=== PATIENT | male | born 1930 | race Caucasian/White ===

== ENCOUNTER 2016-08-21 18:14 | Inpatient (IN) | payer MEDICARE, BC, MEDICAID ==
[~2016-08-21] VITALS: Ht 175.3 cm; Wt 75.2 kg
[2016-08-21] MEDS ORDERED: ACETAMINOPHEN 650 MG SUPP RECTAL ONE (18:40)
[2016-08-21] MEDS ORDERED: SODIUM CHLORIDE 0.9% 1,000 ML ONE ×2 (18:48→21:48)
[2016-08-21] MEDS ORDERED: SODIUM CHLORIDE 0.9% 500 ML IV ONE (19:58)
[2016-08-21] MEDS ORDERED: CEFTRIAXONE 1 GM VIAL ONE (20:34)
[2016-08-21] MEDS ORDERED: SODIUM CHLORIDE 0.9% 100 ML IV ONE (20:34)
[2016-08-21] MEDS ORDERED: SODIUM CHLORIDE 0.9% 1,000 ML IV ONE (20:50)
[2016-08-21] MEDS ORDERED: PHARMACY TO DOSE IV SCH ×2 (20:50)
[2016-08-21] MEDS ORDERED: SALINE FLUSH 10 ML FLUSH PRN (20:50)
[2016-08-21] MEDS ORDERED: PHARMACY TO DOSE VANCOMYCIN IV SCH (21:00)
[2016-08-21] MEDS ORDERED: SODIUM CHLORIDE 0.9% 1,000 ML IV SCH (21:05)
[2016-08-21 23:32] VITALS: BP_SYST 72; BP_SYST 74; RESP 16; TEMP 102.7
[2016-08-21 23:40] VITALS: BMI 22.2
[2016-08-21] MEDS: VANCOMYCIN 1,250 MG in SODIUM CHLORIDE 0.9% 250 ML IV SCH (23:42)
[2016-08-22] VITALS (10 sets, daily range): BP systolic 76–98; RESP 14–20; TEMP 96.7–101.4
[2016-08-22] MEDS ORDERED: PIPERACIL/TAZO 2.25GM/50ML 50 ML IV SCH
[2016-08-22] MEDS: PIPERACIL/TAZO 2.25GM/50ML 50 ML IV SCH ×4 (00:29→17:01)
[2016-08-22] MEDS: SODIUM CHLORIDE 0.9% FLUSH BAG 500 ML IV SCH (05:53)
[2016-08-22] MEDS: SALINE FLUSH 10 ML FLUSH SCH ×2 (08:00→21:29)
[2016-08-22] MEDS: FAMOTIDINE 20 MG INJ IV SCH ×2 (08:25→20:28)
[2016-08-22] MEDS ORDERED: SODIUM CHLORIDE 0.9% 1,000 ML IV ONE (09:00)
[2016-08-22] MEDS: ACETAMINOPHEN 650 MG SUPP RECTAL PRN (09:49)
[2016-08-22] MEDS ORDERED: DEXTROSE 50% SYRINGE 50 ML IV PRN (09:55)
[2016-08-22] MEDS ORDERED: GLUCAGON 1 MG VIAL IM PRN (09:55)
[2016-08-22] MEDS: MEMANTINE 5 MG TAB PO SCH (09:59)
[2016-08-22] MEDS: Finasteride 5 MG TAB PO SCH (09:59)
[2016-08-22] MEDS: SODIUM CHLORIDE 0.9% 1,000 ML IV ONE ×2 (10:28→17:01)
[2016-08-22] MEDS: SODIUM CHLORIDE 0.9% 1,000 ML IV SCH ×2 (11:22→19:02)
[2016-08-22] MEDS: VANCOMYCIN 1,250 MG in SODIUM CHLORIDE 0.9% 250 ML IV SCH (22:20)
[2016-08-23] MEDS: PIPERACIL/TAZO 2.25GM/50ML 50 ML IV SCH ×2 (00:04→05:08)
[2016-08-23 03:49] VITALS: BP_SYST 102; RESP 16; TEMP 96.9
[2016-08-23] MEDS: SODIUM CHLORIDE 0.9% FLUSH BAG 500 ML IV SCH (05:01)
[2016-08-23] MEDS: SODIUM CHLORIDE 0.9% 1,000 ML IV SCH (05:09)
[2016-08-23 07:35] VITALS: BP_SYST 92; RESP 16; TEMP 96.9
[2016-08-23] MEDS: MEMANTINE 5 MG TAB PO SCH (09:00)
[2016-08-23] MEDS: Finasteride 5 MG TAB PO SCH (09:00)
[2016-08-23] MEDS: SALINE FLUSH 10 ML FLUSH SCH ×2 (09:33→19:58)
[2016-08-23] MEDS: FAMOTIDINE 20 MG INJ IV SCH ×2 (09:35→19:58)
[2016-08-23] MEDS: POTASSIUM CHLORIDE PREMIX 50 ML IV SCH ×4 (09:36→14:05)
[2016-08-23] MEDS: LACT RINGERS 1,000 ML IV SCH ×2 (10:43→22:55)
[2016-08-23] MEDS: PIPERACIL/TAZO 3.375GM/50ML 50 ML IV SCH ×3 (12:08→23:56)
[2016-08-23] MEDS: MAGNESIUM SULF 1 GM/100 ML 100 ML IV SCH ×4 (15:05→18:52)
[2016-08-23 20:31] VITALS: BP_SYST 134; RESP 18; TEMP 96
[2016-08-23 22:59] VITALS: BP_SYST 128; RESP 18; TEMP 96.8
[2016-08-24 03:47] VITALS: BP_SYST 138; RESP 16; TEMP 97.2
[2016-08-24] MEDS: SODIUM CHLORIDE 0.9% FLUSH BAG 500 ML IV SCH (05:43)
[2016-08-24] MEDS: PIPERACIL/TAZO 3.375GM/50ML 50 ML IV SCH (05:53)
[2016-08-24 08:14] VITALS: BP_SYST 146; RESP 18; TEMP 97.1
[2016-08-24] MEDS ORDERED: KCL 20 MEQ/15 ML UDC PO ONE (09:15)
[2016-08-24] MEDS: FAMOTIDINE 20 MG INJ IV SCH ×2 (09:40→21:37)
[2016-08-24] MEDS: SALINE FLUSH 10 ML FLUSH SCH ×2 (09:40→21:37)
[2016-08-24] MEDS: CEFTRIAXONE 1 GM in SODIUM CHLORIDE 0.9% 50 ML IV SCH ×2 (09:41→21:38)
[2016-08-24 10:28] VITALS: Ht 175.3 cm; Wt 75.2 kg
[2016-08-24 11:06] VITALS: RESP 18; TEMP 97.3
[2016-08-24] MEDS: LACT RINGERS 1,000 ML IV SCH ×2 (11:20→21:38)
[2016-08-24] MEDS: ACETAMINOPHEN 650 MG SUPP RECTAL PRN (11:48)
[2016-08-24] MEDS: Finasteride 5 MG TAB PO SCH (11:48)
[2016-08-24] MEDS: MEMANTINE 5 MG TAB PO SCH (11:48)
[2016-08-24 11:53] VITALS: BP_SYST 144; RESP 18; TEMP 97.8
[2016-08-24 15:00] VITALS: BP_SYST 132; RESP 16; TEMP 97.4
[2016-08-24 19:55] VITALS: BP_SYST 128; RESP 20; TEMP 97.1
[2016-08-25] MEDS: SODIUM CHLORIDE 0.9% FLUSH BAG 500 ML IV SCH
[2016-08-25 00:20] VITALS: BP_SYST 132; RESP 18; TEMP 97.5
[2016-08-25 04:32] VITALS: BP_SYST 130; RESP 18; TEMP 97.2
[2016-08-25 07:41] VITALS: BP_SYST 122; RESP 18; TEMP 97.3
[2016-08-25] MEDS ORDERED: MISSING DOSE XX ONE (09:35)
[2016-08-25] MEDS: Finasteride 5 MG TAB PO SCH (09:42)
[2016-08-25] MEDS: MEMANTINE 5 MG TAB PO SCH (09:42)
[2016-08-25] MEDS: FAMOTIDINE 20 MG INJ IV SCH ×2 (09:43→20:14)
[2016-08-25] MEDS: SALINE FLUSH 10 ML FLUSH SCH ×2 (09:44→20:15)
[2016-08-25] MEDS: CEFTRIAXONE 1 GM in SODIUM CHLORIDE 0.9% 50 ML IV SCH ×2 (10:08→20:16)
[2016-08-25 11:21] VITALS: BP_SYST 144; RESP 18; TEMP 97.4
[2016-08-25 15:21] VITALS: BP_SYST 136; RESP 18; TEMP 97.6
[2016-08-25 19:53] VITALS: BP_SYST 132; RESP 18; TEMP 98.3
[2016-08-26 00:02] VITALS: BP_SYST 122; RESP 18; TEMP 97.7
[2016-08-26] MEDS: SODIUM CHLORIDE 0.9% FLUSH BAG 500 ML IV SCH (01:16)
[2016-08-26] MEDS: DUONEB INH PRN ×5 (01:40→23:02)
[2016-08-26 03:52] VITALS: BP_SYST 118; RESP 16; TEMP 98
[2016-08-26 07:36] VITALS: BP_SYST 124; RESP 18; TEMP 97.7
[2016-08-26] MEDS: SALINE FLUSH 10 ML FLUSH SCH ×2 (09:27→20:38)
[2016-08-26] MEDS: Finasteride 5 MG TAB PO SCH (09:28)
[2016-08-26] MEDS: MEMANTINE 5 MG TAB PO SCH (09:28)
[2016-08-26] MEDS: FAMOTIDINE 20 MG INJ IV SCH ×2 (09:28→20:38)
[2016-08-26] MEDS: CEFTRIAXONE 1 GM in SODIUM CHLORIDE 0.9% 50 ML IV SCH ×2 (09:29→20:38)
[2016-08-26 11:27] VITALS: BP_SYST 126; RESP 18; TEMP 97.9
[2016-08-26] MEDS ORDERED: KCL 20 MEQ/15 ML UDC PO ONE (12:30)
[2016-08-26 16:07] VITALS: BP_SYST 148; RESP 18
[2016-08-26] MEDS: ACETAMINOPHEN 650 MG SUPP RECTAL PRN (17:16)
[2016-08-26 20:33] VITALS: BP_SYST 120; RESP 16; TEMP 97.4
[2016-08-27 00:35] VITALS: BP_SYST 130; RESP 16; TEMP 98.1
[2016-08-27 03:38] VITALS: BP_SYST 124; RESP 16; TEMP 97.5
[2016-08-27] MEDS: SODIUM CHLORIDE 0.9% FLUSH BAG 500 ML IV SCH (06:24)
[2016-08-27] MEDS: CEFTRIAXONE 1 GM in SODIUM CHLORIDE 0.9% 50 ML IV SCH (07:54)
[2016-08-27] MEDS: SALINE FLUSH 10 ML FLUSH SCH (07:54)
[2016-08-27] MEDS: FAMOTIDINE 20 MG INJ IV SCH (07:54)
[2016-08-27 08:35] VITALS: BP_SYST 134; RESP 16; TEMP 96.3
[2016-08-27] MEDS: Finasteride 5 MG TAB PO SCH (09:48)
[2016-08-27] MEDS: MEMANTINE 5 MG TAB PO SCH (09:48)
[2016-08-27] MEDS: DUONEB INH PRN (11:05)
[2016-08-27] MEDS ORDERED: LEVEMIR INSULIN SUBQ ONE (11:35)
[2016-08-27] MEDS ORDERED: Furosemide 40 MG/4 ML VIAL IV ONE (11:35)
[2016-08-27 11:49] VITALS: BP_SYST 126; RESP 16; TEMP 96.1
[2016-08-27 15:40] VITALS: BP_SYST 130; RESP 16; TEMP 96.9
[2016-08-27 17:23] VITALS: BP_SYST 130; RESP 16; TEMP 96.9
== END 2016-08-27 18:50 | disposition short-term general hospital (02) | DRG 871 ==
LOC: ENRESERVDT → ENRESERVTM → ER 18:14 → ENPENDDIS 20:47 → EMR 20:47 → 4THW 23:15
PROVIDERS: ADMIT Internal Medicine; ATTEND Internal Medicine
DX: A41.51 Sepsis due to Escherichia coli [E. coli] (principal); R65.21 Severe sepsis with septic shock; G93.41 Metabolic encephalopathy; N17.9 Acute kidney failure, unspecified; D69.6 Thrombocytopenia, unspecified; E87.0 Hyperosmolality and hypernatremia; E87.2 Acidosis; N39.0 Urinary tract infection, site not specified; I42.2 Other hypertrophic cardiomyopathy; E87.6 Hypokalemia; I50.9 Heart failure, unspecified; Z66 Do not resuscitate; Z51.5 Encounter for palliative care; J30.9 Allergic rhinitis, unspecified; R90.89 Other abnormal findings on diagnostic imaging of central nervous system; E11.65 Type 2 diabetes mellitus with hyperglycemia
CPT/HCPCS: 36415; 70450; 71010; 76770; 80048; 80053; 81001; 82947; 83036; 83605; 83630; 83735; 84100; 84300; 85007; 85025; 85027; 85610; 87040; 87045; 87046; 87077; 87088; 87177; 87186; 87278; 87299; 87493; 87804; 94640; 94799; 96361; 96365; 99223; 99232; 99233; 99239